=== PATIENT | female | born 1980 | race African-American/Black ===

== ENCOUNTER 2016-09-17 09:47 | Emergency (ER) | payer OTHER ==
[~2016-09-17] VITALS: Ht 157.5 cm; Wt 125.0 kg
[2016-09-17] MEDS ORDERED: PHEN-857 PO (09:56)
[2016-09-17] MEDS ORDERED: NITR100C PO (09:58)
[2016-09-17 10:30] LABS: APPEARANCE,URINE CLOUDY (CLEAR); GLUCOSE, URINE (UA) NEGATIVE (NEGATIVE); KETONES,URINE TRACE mg/dL (NEGATIVE); LEUKOCYTE ESTERASE ,URINE MODERATE (NEGATIVE); OCCULT BLOOD,URINE LARGE (NEGATIVE); PROTEIN,URINE POS 1+ (NEGATIVE)
[2016-09-17 10:38] LABS: EOSINOPHILS % (AUTO) 1.8 % (1.0-6.0); HEMATOCRIT 38.4 % (36-46); HEMOGLOBIN 12.2 g/dL (12.0-16.0); LYMPHOCYTES # (AUTO) 0.9 K/uL (1.0-4.8); LYMPHOCYTES % (AUTO) 9.1 % (22.0-44.0); MEAN CORPUSCULAR HEMOGLOBIN 26.8 pg (26.0-34.0); MEAN CORPUSCULAR HGB CONC 31.9 G/dL (31.0-37.0); MEAN CORPUSCULAR VOLUME 84 fL (80-100); MONOCYTES # (AUTO) 0.8 K/uL (0.1-1.0); NEUTROPHILS # (AUTO) 8.4 K/uL (1.8-7.7); NEUTROPHILS % (AUTO) 81.1 % (40.0-70.0); PLATELET COUNT (AUTO) 319 K/uL (150-450); RED BLOOD CELL COUNT(AUTO) 4.58 MIL/uL (4.00-5.20); RED CELL DISTRIBUTION WIDTH 15.1 % (11.5-14.5); WHITE BLOOD COUNT (AUTO) 10.3 K/uL (4.5-11.0)
[2016-09-17 10:40] LABS: ADD UA MICROSCOPIC YES
[2016-09-17 10:46] LABS: SQUAMOUS EPITHELIAL CELL,UR Many /LPF (None Seen)
[2016-09-17 11:10] LABS: ANION GAP 10 mmol/L (8-16); CALCIUM, TOTAL 8.6 mg/dL (8.8-10.5); CARBON DIOXIDE 27 mmol/L (22-29); CHLORIDE 105 mmol/L (98-107); CREATININE 0.73 mg/dL (0.60-1.30); GLOMERULAR FILTR. RATE CALC > 60 mL/min (>60); POTASSIUM 3.4 mmol/L (3.5-5.1); SODIUM SERUM 142 mmol/L (136-145); UREA NITROGEN, BLOOD 7 mg/dL (7-18)
[2016-09-17 11:14] LABS: ALANINE AMINOTRANSFERASE 24 U/L (12-78); ALBUMIN 3.2 g/dL (3.4-5.0); ASPARTATE AMINOTRANSFERASE 17 U/L (15-37); BILIRUBIN,TOTAL 0.6 mg/dL (0.1-1.0); TOTAL PROTEIN, SERUM 7.3 g/dL (6.4-8.2)
[2016-09-17 11:30] LABS: RBC MORPHOLOGY COMMENT ABNORMAL RBC MORPH
[2016-09-17 11:59] VITALS: BP 127/79
== END 2016-09-17 12:05 | disposition home or self-care (01) ==
LOC: EMS 09:48
DX: N39.0 Urinary tract infection, site not specified (principal)
CPT/HCPCS: 87086; 99284

== ENCOUNTER → 2018-07-31 | Emergency (ER) | payer OTHER ==
[~2018-07-31] VITALS: Ht 157.5 cm; Wt 127.3 kg
[~2018-07-31] MED LIST: FERR-89 PO; NITR100C PO; PHEN-922 PO
[2018-07-31 11:29] VITALS: BP 137/97
[2018-07-31 14:32] LABS: BASOPHILS % (AUTO) 0.3 % (0.0-2.0); EOSINOPHILS % (AUTO) 2.3 % (1.0-6.0); HEMATOCRIT 33.6 % (36-46); HEMOGLOBIN 10.6 g/dL (12.0-16.0); LYMPHOCYTES # (AUTO) 1.2 K/uL (1.0-4.8); LYMPHOCYTES % (AUTO) 17.8 % (22.0-44.0); MEAN CORPUSCULAR HEMOGLOBIN 24.7 pg (26.0-34.0); MEAN CORPUSCULAR HGB CONC 31.4 G/dL (31.0-37.0); MEAN CORPUSCULAR VOLUME 79 fL (80-100); MONOCYTES # (AUTO) 0.7 K/uL (0.1-1.0); MONOCYTES % (AUTO) 9.8 % (2.0-9.0); NEUTROPHILS # (AUTO) 4.8 K/uL (1.8-7.7); NEUTROPHILS % (AUTO) 69.8 % (40.0-70.0); PLATELET COUNT (AUTO) 412 K/uL (150-450); RED BLOOD CELL COUNT(AUTO) 4.28 MIL/uL (4.00-5.20); RED CELL DISTRIBUTION WIDTH 16.1 % (11.5-14.5)
[2018-07-31 14:37] LABS: ANION GAP 9 mmol/L (8-16); CARBON DIOXIDE 28 mmol/L (22-29); CHLORIDE 104 mmol/L (98-107); CREATININE 0.46 mg/dL (0.60-1.30); GLUCOSE,RANDOM 80 mg/dL (70-110); POTASSIUM 3.8 mmol/L (3.5-5.1); SODIUM SERUM 141 mmol/L (136-145); UREA NITROGEN, BLOOD 7 mg/dL (7-18)
[2018-07-31 14:38] LABS: CALCIUM, TOTAL 8.4 mg/dL (8.8-10.5); GLOMERULAR FILTR. RATE CALC > 60 mL/min (>60)
[2018-07-31 14:49] LABS: ALANINE AMINOTRANSFERASE 38 U/L (12-78); ALBUMIN 3.2 g/dL (3.4-5.0); ALKALINE PHOSPHATASE 48 U/L (46-116); ASPARTATE AMINOTRANSFERASE 34 U/L (15-37); BILIRUBIN,TOTAL 0.6 mg/dL (0.1-1.0); HCG,QUANTITATIVE < 1 mIU/mL (0-6); LIPASE 140 U/L (73-393); TOTAL PROTEIN, SERUM 7.6 g/dL (6.4-8.2)
== END | disposition home or self-care (01) ==
LOC: EMS 11:16
DX: R11.2 Nausea with vomiting, unspecified (principal); Z53.21 Procedure and treatment not carried out due to patient leaving prior to being seen by health care provider

== ENCOUNTER 2018-09-18 08:22 | Emergency (ER) | payer OTHER ==
[~2018-09-18] VITALS: Ht 154.9 cm; Wt 127.3 kg
[~2018-09-18 08:22] MED LIST changes: -NITR100C PO; -PHEN-922 PO
[2018-09-18] MEDS ORDERED: VITAD400 PO (08:24)
[2018-09-18 08:53] LABS: GLUCOSE,POINT OF CARE 114 MG/DL (70-110)
[2018-09-18 09:36] VITALS: BP 122/71
== END 2018-09-18 09:38 | disposition home or self-care (01) ==
LOC: EMS 08:23
DX: N61.1 Abscess of the breast and nipple (principal); Z79.899 Other long term (current) drug therapy
CPT/HCPCS: 82948

== ENCOUNTER 2021-07-24 09:42 | Emergency (ER) | payer OTHER ==
[~2021-07-24] VITALS: Ht 165.1 cm; Wt 100.0 kg
[~2021-07-24 09:42] MED LIST changes: +CHOL400T56 PO
[2021-07-24 09:55] VITALS: BP 177/118
== END 2021-07-24 11:23 | disposition left against medical advice (07) ==
LOC: EMS 09:45
DX: I10 Essential (primary) hypertension (principal); R07.89 Other chest pain; Z53.21 Procedure and treatment not carried out due to patient leaving prior to being seen by health care provider

== ENCOUNTER 2021-11-11 09:06 | Emergency (ER) | payer OTHER ==
[~2021-11-11] VITALS: Ht 157.5 cm; Wt 143.0 kg
[~2021-11-11 09:06] MED LIST changes: -FERR-89 PO; +FERR325T27 PO
[2021-11-11 09:23] LABS: APPEARANCE,URINE HAZY (CLEAR); BILIRUBIN,URINE NEGATIVE (NEGATIVE); GLUCOSE, URINE (UA) NEGATIVE (NEGATIVE); KETONES,URINE NEGATIVE (NEGATIVE); LEUKOCYTE ESTERASE ,URINE TRACE (NEGATIVE); NITRATE,URINE NEGATIVE (NEGATIVE); OCCULT BLOOD,URINE NEGATIVE (NEGATIVE); PH,URINE 5.5 (5.0-8.0); PROTEIN,URINE TRACE mg/dL (NEGATIVE); SPECIFIC GRAVITIY, URINE 1.021 (1.003-1.030); UROBILINOGEN,URINE <=1.0 mg/dL (<=1.0)
[2021-11-11 09:43] LABS: BACTERIA,URINE Many /HPF (None Seen); RBC,URINE None Seen /HPF (0-2); SQUAMOUS EPITHELIAL CELL,UR Many /LPF (None Seen); WBC,URINE 0-2 /HPF (0-5)
[2021-11-11] MEDS ORDERED: KETOROLAC TROMETHAMINE 30 MG/ML VIAL IM ONE (10:45)
[2021-11-11] MEDS ORDERED: CEPH-556 PO (13:15)
[2021-11-11 13:22] VITALS: BP 129/68
== END 2021-11-11 13:29 | disposition home or self-care (01) ==
LOC: EMS 09:06
DX: N39.0 Urinary tract infection, site not specified (principal); I10 Essential (primary) hypertension; K76.0 Fatty (change of) liver, not elsewhere classified; N83.201 Unspecified ovarian cyst, right side; Z90.49 Acquired absence of other specified parts of digestive tract; Z98.51 Tubal ligation status
CPT/HCPCS: 74176; 81001; 84703; 96372; 99284; J1885; 87086

== ENCOUNTER 2022-03-04 10:31 | Emergency (ER) | payer OTHER ==
[~2022-03-04] VITALS: Ht 154.9 cm; Wt 141.0 kg
[~2022-03-04 10:31] MED LIST changes: +CEPH-556 PO
[2022-03-04] MEDS ORDERED: KETOROLAC TROMETHAMINE 30 MG/ML VIAL IM ONE (16:15)
[2022-03-04 16:27] LABS: BASOPHILS % (AUTO) 0.3 % (0.0-2.0); HEMOGLOBIN 10.7 g/dL (12.0-16.0); LYMPHOCYTES # (AUTO) 1.2 K/uL (1.0-4.8); MEAN CORPUSCULAR HEMOGLOBIN 24.8 pg (26.0-34.0); MEAN CORPUSCULAR HGB CONC 31.5 G/dL (31.0-37.0); MEAN CORPUSCULAR VOLUME 79 fL (80-100); MONOCYTES # (AUTO) 0.8 K/uL (0.1-1.0); MONOCYTES % (AUTO) 6.1 % (2.0-9.0); NEUTROPHILS # (AUTO) 10.1 K/uL (1.8-7.7); NEUTROPHILS % (AUTO) 81.6 % (40.0-70.0); PLATELET COUNT (AUTO) 435 K/uL (150-450); RED BLOOD CELL COUNT(AUTO) 4.32 MIL/uL (4.00-5.20); RED CELL DISTRIBUTION WIDTH 19.5 % (11.5-14.5)
[2022-03-04 16:44] LABS: ALANINE AMINOTRANSFERASE 33 U/L (12-78); ALBUMIN 3.2 g/dL (3.4-5.0); ALKALINE PHOSPHATASE 65 U/L (46-116); ANION GAP 4 mmol/L (8-16); ASPARTATE AMINOTRANSFERASE 19 U/L (15-37); BILIRUBIN,TOTAL 0.8 mg/dL (0.1-1.0); CALCIUM, TOTAL 9.2 mg/dL (8.8-10.5); CARBON DIOXIDE 32 mmol/L (22-29); CHLORIDE 100 mmol/L (98-107); CREATININE 0.56 mg/dL (0.60-1.30); GLUCOSE,RANDOM 121 mg/dL (70-110); SODIUM SERUM 136 mmol/L (136-145); TOTAL PROTEIN, SERUM 8.2 g/dL (6.4-8.2); UREA NITROGEN, BLOOD 7 mg/dL (7-18)
[2022-03-04 16:47] LABS: GLOMERULAR FILTR. RATE CALC > 60 mL/min (>60); POTASSIUM 2.8 mmol/L (3.5-5.1)
[2022-03-04 16:52] LABS: COVID AG,FIA SOURCE NASAL SWAB
[2022-03-04 17:12] LABS: INFLUENZA TYPE A NEGATIVE FOR TYPE A (NEGATIVE); INFLUENZA TYPE B NEGATIVE FOR TYPE B (NEGATIVE)
[2022-03-04 17:15] VITALS: BP 126/72
[2022-03-04] MEDS ORDERED: LIDOCAINE 1% 10 ML VIAL ID ONE (17:15)
[2022-03-04] MEDS ORDERED: BACTDSB PO (17:26)
[2022-03-04] MEDS ORDERED: POTASSIUM CHLORIDE 20 MEQ ER TABLET PO ONE (18:00)
== END 2022-03-04 18:15 | disposition home or self-care (01) ==
LOC: EMS 10:31
DX: L02.211 Cutaneous abscess of abdominal wall (principal); I10 Essential (primary) hypertension; K76.0 Fatty (change of) liver, not elsewhere classified; Z90.49 Acquired absence of other specified parts of digestive tract; Z98.890 Other specified postprocedural states; Z20.822 Contact with and (suspected) exposure to COVID-19
CPT/HCPCS: 99283; 10060; 87426; 80053; 80176; 85025; 87804; 36415; J1885

== ENCOUNTER 2022-03-08 06:44 | Emergency (ER) | payer OTHER ==
[~2022-03-08] VITALS: Ht 154.9 cm; Wt 141.0 kg
[~2022-03-08 06:44] MED LIST changes: +BACTDSB PO; -CEPH-556 PO
[2022-03-08 06:48] VITALS: BP 122/78
[2022-03-08] MEDS ORDERED: CLIN300C58 PO (07:31)
== END 2022-03-08 07:44 | disposition home or self-care (01) ==
LOC: EMS 06:45
DX: L98.499 Non-pressure chronic ulcer of skin of other sites with unspecified severity (principal); L03.311 Cellulitis of abdominal wall; I10 Essential (primary) hypertension; K76.0 Fatty (change of) liver, not elsewhere classified; Z90.49 Acquired absence of other specified parts of digestive tract; Z98.890 Other specified postprocedural states
CPT/HCPCS: 87070; 87186; 87205; 99283

== ENCOUNTER 2022-05-22 09:01 | Emergency (ER) | payer OTHER ==
[~2022-05-22] VITALS: Ht 157.5 cm; Wt 140.9 kg
[~2022-05-22 09:01] MED LIST changes: -BACTDSB PO; +CLIN300C58 PO
[2022-05-22 09:23] VITALS: BP 149/63
[2022-05-22 09:30] LABS: COVID AG,FIA SOURCE NASAL SWAB
[2022-05-22 10:27] LABS: INFLUENZA TYPE A NEGATIVE FOR TYPE A (NEGATIVE); INFLUENZA TYPE B NEGATIVE FOR TYPE B (NEGATIVE)
[2022-05-22] MEDS ORDERED: BENZ-70 PO (12:27)
[2022-05-22] MEDS ORDERED: BENZ1LOZ77 PO (12:27)
[2022-05-22] MEDS ORDERED: IBUP-2070 PO (12:27)
== END 2022-05-22 12:57 | disposition home or self-care (01) ==
LOC: EMS 09:05
DX: J06.9 Acute upper respiratory infection, unspecified (principal); I10 Essential (primary) hypertension; K76.0 Fatty (change of) liver, not elsewhere classified; Z90.49 Acquired absence of other specified parts of digestive tract; Z20.822 Contact with and (suspected) exposure to COVID-19
CPT/HCPCS: 87804; 99283

== ENCOUNTER 2022-06-09 13:50 | Emergency (ER) | payer OTHER ==
[~2022-06-09] VITALS: Ht 157.5 cm; Wt 136.4 kg
[~2022-06-09 13:50] MED LIST changes: +BENZ-70 PO; +BENZ1LOZ77 PO; -CHOL400T56 PO; -CLIN300C58 PO; -FERR325T27 PO; +IBUP-2070 PO
[2022-06-09] MEDS ORDERED: SODIUM CHLORIDE 0.9% 1,000 ML IV ONE (14:15)
[2022-06-09] MEDS ORDERED: KETOROLAC TROMETHAMINE 30 MG/ML VIAL IVP ONE (14:15)
[2022-06-09 14:36] LABS: BASOPHILS % (AUTO) 0.4 % (0.0-2.0); EOSINOPHILS % (AUTO) 3.5 % (1.0-6.0); HEMATOCRIT 33.6 % (36-46); HEMOGLOBIN 10.4 g/dL (12.0-16.0); LYMPHOCYTES # (AUTO) 1.9 K/uL (1.0-4.8); LYMPHOCYTES % (AUTO) 17.1 % (22.0-44.0); MEAN CORPUSCULAR HEMOGLOBIN 23.8 pg (26.0-34.0); MEAN CORPUSCULAR HGB CONC 30.8 G/dL (31.0-37.0); MEAN CORPUSCULAR VOLUME 77 fL (80-100); MONOCYTES # (AUTO) 0.8 K/uL (0.1-1.0); MONOCYTES % (AUTO) 7.2 % (2.0-9.0); NEUTROPHILS # (AUTO) 7.9 K/uL (1.8-7.7); NEUTROPHILS % (AUTO) 71.8 % (40.0-70.0); PLATELET COUNT (AUTO) 499 K/uL (150-450); RED BLOOD CELL COUNT(AUTO) 4.37 MIL/uL (4.00-5.20); RED CELL DISTRIBUTION WIDTH 18.3 % (11.5-14.5)
[2022-06-09 15:01] LABS: ANION GAP 8 mmol/L (8-16); CALCIUM, TOTAL 9.3 mg/dL (8.8-10.5); CARBON DIOXIDE 30 mmol/L (22-29); CHLORIDE 102 mmol/L (98-107); CREATININE 0.59 mg/dL (0.60-1.30); GLUCOSE,RANDOM 100 mg/dL (70-110); SODIUM SERUM 140 mmol/L (136-145); UREA NITROGEN, BLOOD 10 mg/dL (7-18)
[2022-06-09 15:02] LABS: GLOMERULAR FILTR. RATE CALC > 60 mL/min (>60)
[2022-06-09 15:06] LABS: APPEARANCE,URINE CLEAR (CLEAR); BILIRUBIN,URINE NEGATIVE (NEGATIVE); GLUCOSE, URINE (UA) NEGATIVE (NEGATIVE); KETONES,URINE NEGATIVE (NEGATIVE); LEUKOCYTE ESTERASE ,URINE TRACE (NEGATIVE); NITRATE,URINE NEGATIVE (NEGATIVE); OCCULT BLOOD,URINE NEGATIVE (NEGATIVE); PH,URINE 5.5 (5.0-8.0); PROTEIN,URINE TRACE mg/dL (NEGATIVE); SPECIFIC GRAVITIY, URINE 1.028 (1.003-1.030); UROBILINOGEN,URINE <=1.0 mg/dL (<=1.0)
[2022-06-09 15:06] LABS: ALANINE AMINOTRANSFERASE 19 U/L (12-78); ALBUMIN 3.5 g/dL (3.4-5.0); ALKALINE PHOSPHATASE 59 U/L (46-116); ASPARTATE AMINOTRANSFERASE 18 U/L (15-37); BILIRUBIN,TOTAL 0.6 mg/dL (0.1-1.0); LIPASE 118 U/L (73-393); TOTAL PROTEIN, SERUM 8.3 g/dL (6.4-8.2)
[2022-06-09 15:09] LABS: BACTERIA,URINE None Seen /HPF (None Seen); RBC,URINE None Seen /HPF (0-2); WBC,URINE 0-2 /HPF (0-5)
[2022-06-09 15:10] LABS: SQUAMOUS EPITHELIAL CELL,UR Many /LPF (None Seen)
[2022-06-09 16:20] VITALS: BP 162/108
[2022-06-09] MEDS ORDERED: ACET-3385 PO (16:26)
[2022-06-09] MEDS ORDERED: FAMO20 PO (16:26)
== END 2022-06-09 16:36 | disposition home or self-care (01) ==
LOC: EMS 13:55
DX: R10.33 Periumbilical pain (principal); I10 Essential (primary) hypertension; K76.0 Fatty (change of) liver, not elsewhere classified; Z98.51 Tubal ligation status; Z90.49 Acquired absence of other specified parts of digestive tract
CPT/HCPCS: 99284; 74176; 96374; 96361; 80053; 81001; 83690; 85025; 36415; J1885; J7030

== ENCOUNTER 2022-08-23 08:10 | Emergency (ER) | payer OTHER ==
[~2022-08-23] VITALS: Ht 165.1 cm; Wt 138.6 kg
[~2022-08-23 08:10] MED LIST changes: +ACET-3385 PO; -BENZ-70 PO; -BENZ1LOZ77 PO; +FAMO20 PO; -IBUP-2070 PO
[2022-08-23 08:39] LABS: COVID AG,FIA SOURCE NASAL SWAB
[2022-08-23] MEDS ORDERED: SODIUM CHLORIDE 0.9% IV ONE (08:45)
[2022-08-23] MEDS ORDERED: 0.9% SODIUM CHLORIDE 10 ML SYRINGE IVP PRN (08:45)
[2022-08-23] MEDS ORDERED: CefTRIAXone 1 GM/DEXTROSE 50 ML IV ONE (08:45)
[2022-08-23] MEDS ORDERED: ACETAMINOPHEN 500 MG TABLET PO ONE (08:45)
[2022-08-23 09:09] LABS: INFLUENZA TYPE A NEGATIVE FOR TYPE A (NEGATIVE); INFLUENZA TYPE B NEGATIVE FOR TYPE B (NEGATIVE)
[2022-08-23 09:13] LABS: BASOPHILS % (AUTO) 0.6 % (0.0-2.0); EOSINOPHILS % (AUTO) 1.6 % (1.0-6.0); HEMATOCRIT 29.3 % (36-46); LYMPHOCYTES # (AUTO) 0.9 K/uL (1.0-4.8); LYMPHOCYTES % (AUTO) 10.4 % (22.0-44.0); MEAN CORPUSCULAR HEMOGLOBIN 21.2 pg (26.0-34.0); MEAN CORPUSCULAR HGB CONC 30.7 G/dL (31.0-37.0); MEAN CORPUSCULAR VOLUME 69 fL (80-100); MONOCYTES # (AUTO) 1.2 K/uL (0.1-1.0); MONOCYTES % (AUTO) 14.1 % (2.0-9.0); NEUTROPHILS # (AUTO) 6.1 K/uL (1.8-7.7); NEUTROPHILS % (AUTO) 73.3 % (40.0-70.0); PLATELET COUNT (AUTO) 452 K/uL (150-450); RED BLOOD CELL COUNT(AUTO) 4.24 MIL/uL (4.00-5.20); RED CELL DISTRIBUTION WIDTH 18.5 % (11.5-14.5)
[2022-08-23 09:24] LABS: PROTHROMBIN TIME 10.8 SEC (9.4-11.6)
[2022-08-23 09:25] LABS: ANION GAP 9 mmol/L (8-16); CALCIUM, TOTAL 8.6 mg/dL (8.8-10.5); CARBON DIOXIDE 25 mmol/L (22-29); CHLORIDE 102 mmol/L (98-107); CREATININE 0.84 mg/dL (0.60-1.30); GLOMERULAR FILTR. RATE CALC > 60 mL/min (>60); GLUCOSE,RANDOM 96 mg/dL (70-110); POTASSIUM 3.8 mmol/L (3.5-5.1); SODIUM SERUM 136 mmol/L (136-145); UREA NITROGEN, BLOOD 5 mg/dL (7-18)
[2022-08-23 09:31] LABS: ALANINE AMINOTRANSFERASE 24 U/L (12-78); ALBUMIN 3.2 g/dL (3.4-5.0); ALKALINE PHOSPHATASE 69 U/L (46-116); ASPARTATE AMINOTRANSFERASE 26 U/L (15-37); BILIRUBIN,TOTAL 0.5 mg/dL (0.1-1.0); TOTAL PROTEIN, SERUM 8.1 g/dL (6.4-8.2)
[2022-08-23 09:34] LABS: LACTIC ACID 0.7 mmol/L (0.4-2.0)
[2022-08-23] MEDS ORDERED: AZITHROMYCIN 500 MG/NS 250 ML IV ONE (11:00)
[2022-08-23 11:12] LABS: APPEARANCE,URINE CLEAR (CLEAR); BILIRUBIN,URINE NEGATIVE (NEGATIVE); GLUCOSE, URINE (UA) NEGATIVE (NEGATIVE); KETONES,URINE NEGATIVE (NEGATIVE); LEUKOCYTE ESTERASE ,URINE NEGATIVE (NEGATIVE); NITRATE,URINE NEGATIVE (NEGATIVE); OCCULT BLOOD,URINE NEGATIVE (NEGATIVE); PROTEIN,URINE NEGATIVE (NEGATIVE); SPECIFIC GRAVITIY, URINE 1.004 (1.003-1.030); UROBILINOGEN,URINE <=1.0 mg/dL (<=1.0)
[2022-08-23] MEDS ORDERED: AZIT250T9 PO (12:27)
[2022-08-23] MEDS ORDERED: AMOX1TAB16 PO (12:27)
[2022-08-23 12:49] VITALS: BP 149/87
== END 2022-08-23 12:59 | disposition home or self-care (01) ==
LOC: EMS 08:14
DX: J18.9 Pneumonia, unspecified organism (principal); I10 Essential (primary) hypertension; K76.0 Fatty (change of) liver, not elsewhere classified; Z98.51 Tubal ligation status; Z90.49 Acquired absence of other specified parts of digestive tract; Z98.890 Other specified postprocedural states; Z20.822 Contact with and (suspected) exposure to COVID-19
CPT/HCPCS: 99285; 96365; 71045; 87426; 80053; 81003; 83605; 85025; 85610; 87040; 87804; 36415; 93005; 96368; J0456; J0696

== ENCOUNTER 2022-09-08 13:03 | Emergency (ER) | payer OTHER ==
[~2022-09-08] VITALS: Ht 157.5 cm; Wt 136.4 kg
[~2022-09-08 13:03] MED LIST changes: -ACET-3385 PO; +AMOX1TAB16 PO; -FAMO20 PO
[2022-09-08 13:15] VITALS: BP 150/83
[2022-09-08 14:01] LABS: BASOPHILS % (AUTO) 0.4 % (0.0-2.0); EOSINOPHILS % (AUTO) 3.3 % (1.0-6.0); HEMATOCRIT 29.7 % (36-46); LYMPHOCYTES # (AUTO) 1.6 K/uL (1.0-4.8); MEAN CORPUSCULAR HEMOGLOBIN 20.6 pg (26.0-34.0); MEAN CORPUSCULAR HGB CONC 30.1 G/dL (31.0-37.0); MEAN CORPUSCULAR VOLUME 68 fL (80-100); MONOCYTES # (AUTO) 0.9 K/uL (0.1-1.0); MONOCYTES % (AUTO) 7.2 % (2.0-9.0); NEUTROPHILS # (AUTO) 9.2 K/uL (1.8-7.7); NEUTROPHILS % (AUTO) 76.1 % (40.0-70.0); PLATELET COUNT (AUTO) 666 K/uL (150-450); RED BLOOD CELL COUNT(AUTO) 4.35 MIL/uL (4.00-5.20); RED CELL DISTRIBUTION WIDTH 18.7 % (11.5-14.5)
[2022-09-08 14:14] LABS: ANION GAP 11 mmol/L (8-16); CALCIUM, TOTAL 9.4 mg/dL (8.8-10.5); CARBON DIOXIDE 29 mmol/L (22-29); CHLORIDE 101 mmol/L (98-107); CREATININE 0.58 mg/dL (0.60-1.30); GLOMERULAR FILTR. RATE CALC > 60 mL/min (>60); GLUCOSE,RANDOM 87 mg/dL (70-110); POTASSIUM 3.3 mmol/L (3.5-5.1); SODIUM SERUM 141 mmol/L (136-145); UREA NITROGEN, BLOOD 8 mg/dL (7-18)
[2022-09-08 14:14] LABS: APPEARANCE,URINE HAZY (CLEAR); BILIRUBIN,URINE NEGATIVE (NEGATIVE); GLUCOSE, URINE (UA) NEGATIVE (NEGATIVE); KETONES,URINE NEGATIVE (NEGATIVE); LEUKOCYTE ESTERASE ,URINE NEGATIVE (NEGATIVE); NITRATE,URINE NEGATIVE (NEGATIVE); OCCULT BLOOD,URINE NEGATIVE (NEGATIVE); PH,URINE 5.5 (5.0-8.0); PROTEIN,URINE 30-70 mg/dL (NEGATIVE); SPECIFIC GRAVITIY, URINE 1.022 (1.003-1.030); UROBILINOGEN,URINE <=1.0 mg/dL (<=1.0)
[2022-09-08 14:26] LABS: ALANINE AMINOTRANSFERASE 15 U/L (12-78); ALBUMIN 3.4 g/dL (3.4-5.0); ALKALINE PHOSPHATASE 69 U/L (46-116); ASPARTATE AMINOTRANSFERASE 18 U/L (15-37); BILIRUBIN,TOTAL 0.6 mg/dL (0.1-1.0); HCG,QUANTITATIVE < 1 mIU/mL (0-6)
[2022-09-08] MEDS ORDERED: HYDROCODONE/ACETAMINOPHEN 5-325 MG TABLET PO ONE (15:15)
[2022-09-08] MEDS ORDERED: POTASSIUM CHLORIDE 20 MEQ ER TABLET PO ONE (15:15)
[2022-09-08 15:26] LABS: % IRON SATURATION 11.2 % (22-44)
[2022-09-08] MEDS ORDERED: POLY238P PO (18:49)
[2022-09-08] MEDS ORDERED: ACET-2080 PO (18:49)
[2022-09-08] MEDS ORDERED: IBUP-1554 PO (18:49)
== END 2022-09-08 19:28 | disposition home or self-care (01) ==
LOC: EMS 13:09
DX: R10.84 Generalized abdominal pain (principal); D25.9 Leiomyoma of uterus, unspecified; K59.00 Constipation, unspecified; K57.90 Diverticulosis of intestine, part unspecified, without perforation or abscess without bleeding; E87.6 Hypokalemia; D50.9 Iron deficiency anemia, unspecified; E66.01 Morbid (severe) obesity due to excess calories; I10 Essential (primary) hypertension; K76.0 Fatty (change of) liver, not elsewhere classified; Z68.43 Body mass index [BMI] 50.0-59.9, adult; Z90.49 Acquired absence of other specified parts of digestive tract; Z98.51 Tubal ligation status; Z98.890 Other specified postprocedural states
CPT/HCPCS: 73700; 74176; 80053; 81003; 83540; 83550; 84702; 85025; 99284

== ENCOUNTER 2022-09-26 05:12 | Emergency (ER) | payer OTHER ==
[~2022-09-26] VITALS: Ht 157.5 cm; Wt 122.7 kg
[~2022-09-26 05:12] MED LIST changes: +ACET-2080 PO; +IBUP-1554 PO; +POLY238P PO
[2022-09-26 05:58] VITALS: BP 122/76
[2022-09-26] MEDS ORDERED: BACLOFEN 10 MG TABLET PO ONE (07:00)
[2022-09-26] MEDS ORDERED: KETOROLAC TROMETHAMINE 60 MG/2 ML VIAL IM ONE (07:00)
[2022-09-26 07:05] LABS: BASOPHILS % (AUTO) 0.3 % (0.0-2.0); EOSINOPHILS % (AUTO) 1.9 % (1.0-6.0); HEMATOCRIT 29.2 % (36-46); HEMOGLOBIN 8.6 g/dL (12.0-16.0); LYMPHOCYTES # (AUTO) 1.2 K/uL (1.0-4.8); LYMPHOCYTES % (AUTO) 9.8 % (22.0-44.0); MEAN CORPUSCULAR HEMOGLOBIN 20.1 pg (26.0-34.0); MEAN CORPUSCULAR HGB CONC 29.5 G/dL (31.0-37.0); MEAN CORPUSCULAR VOLUME 68 fL (80-100); MONOCYTES % (AUTO) 8.7 % (2.0-9.0); NEUTROPHILS # (AUTO) 9.5 K/uL (1.8-7.7); NEUTROPHILS % (AUTO) 79.3 % (40.0-70.0); PLATELET COUNT (AUTO) 714 K/uL (150-450); RED BLOOD CELL COUNT(AUTO) 4.28 MIL/uL (4.00-5.20); RED CELL DISTRIBUTION WIDTH 19.9 % (11.5-14.5)
[2022-09-26 07:18] LABS: ANION GAP 5 mmol/L (8-16); CARBON DIOXIDE 29 mmol/L (22-29); CHLORIDE 104 mmol/L (98-107); CREATININE 0.63 mg/dL (0.60-1.30); GLOMERULAR FILTR. RATE CALC > 60 mL/min (>60); GLUCOSE,RANDOM 112 mg/dL (70-110); POTASSIUM 3.6 mmol/L (3.5-5.1); SODIUM SERUM 138 mmol/L (136-145); UREA NITROGEN, BLOOD 9 mg/dL (7-18)
[2022-09-26 07:24] LABS: ALANINE AMINOTRANSFERASE 17 U/L (12-78); ALBUMIN 3.1 g/dL (3.4-5.0); ALKALINE PHOSPHATASE 68 U/L (46-116); ASPARTATE AMINOTRANSFERASE 16 U/L (15-37); BILIRUBIN,TOTAL 0.7 mg/dL (0.1-1.0); LIPASE 124 U/L (73-393); TOTAL PROTEIN, SERUM 8.3 g/dL (6.4-8.2)
[2022-09-26] MEDS ORDERED: HYDR-4723 PO (08:47)
[2022-09-26] MEDS ORDERED: METR500 PO (08:47)
[2022-09-26] MEDS ORDERED: POLY238P PO (08:47)
[2022-09-26] MEDS ORDERED: MICO45CR76 VG (08:47)
[2022-09-26] MEDS ORDERED: CEPH-558 PO (08:47)
== END 2022-09-26 09:01 | disposition home or self-care (01) ==
LOC: EMS 05:13
DX: K57.32 Diverticulitis of large intestine without perforation or abscess without bleeding (principal); I10 Essential (primary) hypertension; K76.0 Fatty (change of) liver, not elsewhere classified; Z90.49 Acquired absence of other specified parts of digestive tract; Z98.51 Tubal ligation status; Z98.890 Other specified postprocedural states
CPT/HCPCS: 99285; 74176; 80053; 83690; 84703; 85025; 36415; 96372; J1885

== ENCOUNTER 2023-04-14 07:39 | Emergency (ER) | payer OTHER ==
[~2023-04-14] VITALS: Ht 167.6 cm; Wt 113.6 kg
[~2023-04-14 07:39] MED LIST changes: -ACET-2080 PO; -AMOX1TAB16 PO; +CEPH-558 PO; +HYDR-4723 PO; -IBUP-1554 PO; +METR500 PO; +MICO45CR76 VG
[2023-04-14 07:47] VITALS: TEMP 99
[2023-04-14] MEDS ORDERED: LOSA100T59 PO (07:51)
[2023-04-14] MEDS ORDERED: MEDR10TA11 PO (07:51)
[2023-04-14 07:55] LABS: COVID AG,FIA SOURCE NASAL SWAB
[2023-04-14 08:24] LABS: SARS-COV2 (COVID) ANTIGEN,FIA Negative (Negative)
[2023-04-14 08:25] LABS: INFLUENZA TYPE A NEGATIVE FOR TYPE A (NEGATIVE); INFLUENZA TYPE B NEGATIVE FOR TYPE B (NEGATIVE)
[2023-04-14 08:42] VITALS: BP 143/70; PULSE 67; RESP 16
[2023-04-14] MEDS ORDERED: AMOX500C2 PO (09:03)
== END 2023-04-14 09:25 | disposition home or self-care (01) ==
LOC: EMS 07:42
DX: J32.9 Chronic sinusitis, unspecified (principal); I10 Essential (primary) hypertension; D64.9 Anemia, unspecified; Z90.49 Acquired absence of other specified parts of digestive tract; Z98.51 Tubal ligation status; Z20.822 Contact with and (suspected) exposure to COVID-19
CPT/HCPCS: 71045; 87804; 99284

== ENCOUNTER 2023-07-31 07:00 | Emergency (ER) | payer OTHER ==
[~2023-07-31] VITALS: Ht 154.9 cm; Wt 133.2 kg
[~2023-07-31 07:00] MED LIST changes: +AMOX500C2 PO; -CEPH-558 PO; -HYDR-4723 PO; +LOSA100T59 PO; +MEDR10TA11 PO; -METR500 PO; -MICO45CR76 VG; -POLY238P PO
[2023-07-31 07:05] VITALS: BP 133/96; PULSE 70; RESP 18; TEMP 98.4
[2023-07-31 07:24] LABS: COVID AG,FIA SOURCE NASAL SWAB
[2023-07-31 08:09] LABS: SARS-COV2 (COVID) ANTIGEN,FIA Positive (Negative)
[2023-07-31] MEDS ORDERED: GUAIFDM PO (08:15)
[2023-07-31] MEDS ORDERED: IBUP-1554 PO (08:15)
[2023-07-31] MEDS ORDERED: ACET-2080 PO (08:15)
== END 2023-07-31 08:26 | disposition home or self-care (01) ==
LOC: EMS 07:01
DX: U07.1 COVID-19 (principal); J06.9 Acute upper respiratory infection, unspecified; I10 Essential (primary) hypertension; Z90.49 Acquired absence of other specified parts of digestive tract; Z98.51 Tubal ligation status; Z98.890 Other specified postprocedural states
CPT/HCPCS: 99283

== ENCOUNTER 2023-08-03 08:45 | Emergency (ER) | payer OTHER ==
[~2023-08-03] VITALS: Ht 154.9 cm; Wt 98.0 kg
[~2023-08-03 08:45] MED LIST changes: +ACET-2080 PO; -AMOX500C2 PO; +GUAIFDM PO; +IBUP-1554 PO
[2023-08-03] MEDS ORDERED: ORAL CONTRACEPTIVE PO (08:54)
[2023-08-03 09:24] LABS: COVID AG,FIA SOURCE NASAL SWAB
[2023-08-03 09:42] VITALS: BP 154/66; PULSE 82; RESP 16; TEMP 98.2
[2023-08-03 09:47] LABS: SARS-COV2 (COVID) ANTIGEN,FIA Negative (Negative)
[2023-08-03 09:56] LABS: INFLUENZA TYPE A NEGATIVE FOR TYPE A (NEGATIVE); INFLUENZA TYPE B POSITIVE FOR TYPE B (NEGATIVE)
== END 2023-08-03 11:01 | disposition home or self-care (01) ==
LOC: EMS 08:51
DX: J10.1 Influenza due to other identified influenza virus with other respiratory manifestations (principal); I10 Essential (primary) hypertension; Z90.49 Acquired absence of other specified parts of digestive tract; Z98.51 Tubal ligation status; Z98.890 Other specified postprocedural states; Z20.822 Contact with and (suspected) exposure to COVID-19
CPT/HCPCS: 87804; 99283

== ENCOUNTER 2023-08-23 10:39 | Emergency (ER) | payer OTHER ==
[~2023-08-23] VITALS: Ht 154.9 cm; Wt 131.8 kg
[~2023-08-23 10:39] MED LIST changes: -ACET-2080 PO; -GUAIFDM PO; -IBUP-1554 PO; -MEDR10TA11 PO; +ORAL CONTRACEPTIVE PO
[2023-08-23 10:47] VITALS: TEMP 97.8
[2023-08-23 11:13] LABS: COVID AG,FIA SOURCE NASAL SWAB
[2023-08-23 11:36] LABS: INFLUENZA TYPE A NEGATIVE FOR TYPE A (NEGATIVE); INFLUENZA TYPE B NEGATIVE FOR TYPE B (NEGATIVE); SARS-COV2 (COVID) ANTIGEN,FIA Negative (Negative)
[2023-08-23 13:17] VITALS: BP 122/79; PULSE 84; RESP 16
[2023-08-23] MEDS ORDERED: IBUP-1492 PO (13:29)
[2023-08-23] MEDS ORDERED: AMOX500C2 PO (13:30)
== END 2023-08-23 13:18 | disposition home or self-care (01) ==
LOC: EMS 10:46
DX: J01.90 Acute sinusitis, unspecified (principal); D64.9 Anemia, unspecified; I10 Essential (primary) hypertension; Z90.49 Acquired absence of other specified parts of digestive tract; Z98.51 Tubal ligation status; Z20.822 Contact with and (suspected) exposure to COVID-19
CPT/HCPCS: 87430; 87804; 99283

== ENCOUNTER 2024-03-02 07:41 | Emergency (ER) | payer OTHER ==
[~2024-03-02] VITALS: Ht 154.9 cm; Wt 135.4 kg
[~2024-03-02 07:41] MED LIST changes: +AMOX500C2 PO; +IBUP-1492 PO
[2024-03-02 07:47] VITALS: TEMP 97.9
[2024-03-02 08:54] LABS: BASOPHILS % (AUTO) 0.5 % (0.0-2.0); EOSINOPHILS % (AUTO) 3.5 % (1.0-6.0); HEMATOCRIT 40.6 % (36-46); HEMOGLOBIN 12.8 g/dL (12.0-16.0); LYMPHOCYTES # (AUTO) 1.4 K/uL (1.0-4.8); LYMPHOCYTES % (AUTO) 18.6 % (22.0-44.0); MEAN CORPUSCULAR HEMOGLOBIN 25.8 pg (26.0-34.0); MEAN CORPUSCULAR HGB CONC 31.5 G/dL (31.0-37.0); MEAN CORPUSCULAR VOLUME 82 fL (80-100); MONOCYTES # (AUTO) 0.6 K/uL (0.1-1.0); MONOCYTES % (AUTO) 8.4 % (2.0-9.0); NEUTROPHILS # (AUTO) 5.1 K/uL (1.8-7.7); PLATELET COUNT (AUTO) 374 K/uL (150-450); RED BLOOD CELL COUNT(AUTO) 4.95 MIL/uL (4.00-5.20); RED CELL DISTRIBUTION WIDTH 15.5 % (11.5-14.5); WHITE BLOOD COUNT (AUTO) 7.4 K/uL (4.5-11.0)
[2024-03-02] MEDS: KETOROLAC TROMETHAMINE 60 MG/2 ML VIAL IM ONE (09:02)
[2024-03-02 09:05] LABS: ANION GAP 6 mmol/L (8-16); CALCIUM, TOTAL 8.6 mg/dL (8.8-10.5); CARBON DIOXIDE 26 mmol/L (22-29); CHLORIDE 105 mmol/L (98-107); GLOMERULAR FILTR. RATE CALC > 60 mL/min (>60); GLUCOSE,RANDOM 91 mg/dL (70-110); POTASSIUM 3.8 mmol/L (3.5-5.1); SODIUM SERUM 137 mmol/L (136-145); UREA NITROGEN, BLOOD 8 mg/dL (7-18)
[2024-03-02] MEDS: METHOCARBAMOL 500 MG TABLET PO ONE (09:19)
[2024-03-02 09:45] LABS: APPEARANCE,URINE HAZY (CLEAR); BILIRUBIN,URINE NEGATIVE (NEGATIVE); COLOR,URINE YELLOW (YELLOW); GLUCOSE, URINE (UA) NEGATIVE (NEGATIVE); KETONES,URINE NEGATIVE (NEGATIVE); LEUKOCYTE ESTERASE ,URINE NEGATIVE (NEGATIVE); NITRATE,URINE NEGATIVE (NEGATIVE); OCCULT BLOOD,URINE MODERATE (NEGATIVE); PH,URINE 5.5 (5.0-8.0); PROTEIN,URINE 30-70 mg/dL (NEGATIVE); SPECIFIC GRAVITIY, URINE 1.026 (1.003-1.030); UROBILINOGEN,URINE <=1.0 mg/dL (<=1.0)
[2024-03-02 09:55] LABS: WBC,URINE 0-2 /HPF (0-5)
[2024-03-02 09:56] LABS: BACTERIA,URINE Many /HPF (None Seen); SQUAMOUS EPITHELIAL CELL,UR Many /LPF (None Seen)
[2024-03-02 10:50] VITALS: BP 138/76; PULSE 72; RESP 18; O2SAT 97
[2024-03-02] MEDS ORDERED: CEPH-558 PO (10:53)
== END 2024-03-02 11:01 | disposition home or self-care (01) ==
LOC: EMS 07:41
DX: N39.0 Urinary tract infection, site not specified (principal); R10.9 Unspecified abdominal pain; I10 Essential (primary) hypertension; D64.9 Anemia, unspecified; Z90.49 Acquired absence of other specified parts of digestive tract; Z98.51 Tubal ligation status
CPT/HCPCS: 99283; 80048; 81001; 85025; 36415; 87086; 87186; 96372; J1885

== ENCOUNTER → 2024-03-23 | Emergency (ER) | payer OTHER ==
[~2024-03-23] VITALS: Ht 154.9 cm; Wt 136.4 kg
[~2024-03-23] MED LIST changes: +ACET-66 PO; -AMOX500C2 PO; +BENZ-227 PO; +CEPH-558 PO; +GUAIFDM PO; +IBUP-1554 PO
[2024-03-23 07:42] VITALS: BP 153/89; PULSE 74; RESP 18; O2SAT 100
[2024-03-23 07:55] LABS: COVID AG,FIA SOURCE NASAL SWAB
[2024-03-23 08:17] LABS: SARS-COV2 (COVID) ANTIGEN,FIA Negative (Negative)
[2024-03-23 08:19] LABS: INFLUENZA TYPE A NEGATIVE FOR TYPE A (NEGATIVE); INFLUENZA TYPE B POSITIVE FOR TYPE B (NEGATIVE)
== END | disposition home or self-care (01) ==
LOC: EMS 07:35
DX: J10.1 Influenza due to other identified influenza virus with other respiratory manifestations (principal); I10 Essential (primary) hypertension; R05.9 Cough, unspecified; R51.9 Headache, unspecified; Z20.822 Contact with and (suspected) exposure to COVID-19
CPT/HCPCS: 87804; 99283

== ENCOUNTER 2024-08-20 09:06 | Emergency (ER) | payer OTHER ==
[~2024-08-20] VITALS: Ht 154.9 cm; Wt 136.4 kg
[2024-08-20 09:26] VITALS: TEMP 98
[2024-08-20 09:56] LABS: APPEARANCE,URINE HAZY (CLEAR); BILIRUBIN,URINE NEGATIVE (NEGATIVE); COLOR,URINE YELLOW (YELLOW); GLUCOSE, URINE (UA) NEGATIVE (NEGATIVE); KETONES,URINE NEGATIVE (NEGATIVE); LEUKOCYTE ESTERASE ,URINE NEGATIVE (NEGATIVE); NITRATE,URINE NEGATIVE (NEGATIVE); OCCULT BLOOD,URINE NEGATIVE (NEGATIVE); PH,URINE 5.5 (5.0-8.0); PROTEIN,URINE TRACE mg/dL (NEGATIVE); SPECIFIC GRAVITIY, URINE 1.028 (1.003-1.030)
[2024-08-20 10:43] LABS: BASOPHILS % (AUTO) 0.7 % (0.0-2.0); EOSINOPHILS % (AUTO) 3.8 % (1.0-6.0); HEMATOCRIT 37.5 % (36-46); HEMOGLOBIN 11.9 g/dL (12.0-16.0); LYMPHOCYTES # (AUTO) 1.4 K/uL (1.0-4.8); LYMPHOCYTES % (AUTO) 17.8 % (22.0-44.0); MEAN CORPUSCULAR HEMOGLOBIN 26.3 pg (26.0-34.0); MEAN CORPUSCULAR HGB CONC 31.8 G/dL (31.0-37.0); MEAN CORPUSCULAR VOLUME 83 fL (80-100); MONOCYTES # (AUTO) 0.6 K/uL (0.1-1.0); NEUTROPHILS # (AUTO) 5.5 K/uL (1.8-7.7); NEUTROPHILS % (AUTO) 69.7 % (40.0-70.0); PLATELET COUNT (AUTO) 455 K/uL (150-450); RED BLOOD CELL COUNT(AUTO) 4.54 MIL/uL (4.00-5.20); RED CELL DISTRIBUTION WIDTH 18.2 % (11.5-14.5); WHITE BLOOD COUNT (AUTO) 7.9 K/uL (4.5-11.0)
[2024-08-20 10:52] LABS: ANION GAP 8 mmol/L (8-16); CALCIUM, TOTAL 8.8 mg/dL (8.8-10.5); CARBON DIOXIDE 29 mmol/L (22-29); CHLORIDE 102 mmol/L (98-107); CREATININE 0.57 mg/dL (0.60-1.30); GLOMERULAR FILTR. RATE CALC > 60 mL/min (>60); GLUCOSE,RANDOM 87 mg/dL (70-110); LIPASE 41 U/L (16-77); SODIUM SERUM 139 mmol/L (136-145); UREA NITROGEN, BLOOD 9 mg/dL (7-18)
[2024-08-20] MEDS: METHOCARBAMOL 500 MG TABLET PO ONE (11:47)
[2024-08-20] MEDS: KETOROLAC TROMETHAMINE 30 MG/ML VIAL IVP ONE (11:47)
[2024-08-20 12:43] VITALS: BP 157/89; PULSE 70; RESP 16; O2SAT 99
== END 2024-08-20 13:34 | disposition home or self-care (01) ==
LOC: EMS 09:06
DX: R10.31 Right lower quadrant pain (principal); I10 Essential (primary) hypertension; K76.0 Fatty (change of) liver, not elsewhere classified; Z79.1 Long term (current) use of non-steroidal anti-inflammatories (NSAID); Z79.899 Other long term (current) drug therapy; Z90.49 Acquired absence of other specified parts of digestive tract; Z98.51 Tubal ligation status
CPT/HCPCS: 99283; 96374; 80048; 81003; 83690; 85025; 36415; J1885

== ENCOUNTER 2024-09-25 11:06 | Emergency (ER) | payer OTHER ==
[~2024-09-25] VITALS: Ht 154.9 cm; Wt 135.1 kg
[2024-09-25 11:10] VITALS: TEMP 98.5
[2024-09-25] MEDS ORDERED: MEDR10TA11 PO (11:12)
[2024-09-25] MEDS ORDERED: CHOL200059 PO (11:12)
[2024-09-25 11:22] LABS: COVID AG,FIA SOURCE NASAL SWAB
[2024-09-25 11:54] LABS: SARS-COV2 (COVID) ANTIGEN,FIA Negative (Negative)
[2024-09-25 11:55] LABS: INFLUENZA TYPE A NEGATIVE FOR TYPE A (NEGATIVE); INFLUENZA TYPE B POSITIVE FOR TYPE B (NEGATIVE)
[2024-09-25 12:45] VITALS: BP 135/77; PULSE 82; RESP 17; O2SAT 98
[2024-09-25] MEDS ORDERED: OSEL75CA45 PO (13:15)
== END 2024-09-25 13:21 | disposition home or self-care (01) ==
LOC: EMS 11:06
DX: J10.1 Influenza due to other identified influenza virus with other respiratory manifestations (principal); I10 Essential (primary) hypertension; K76.0 Fatty (change of) liver, not elsewhere classified; Z90.49 Acquired absence of other specified parts of digestive tract; Z79.899 Other long term (current) drug therapy; Z20.822 Contact with and (suspected) exposure to COVID-19
CPT/HCPCS: 71045; 87804; 99284

== ENCOUNTER 2024-11-06 09:50 | Emergency (ER) | payer OTHER ==
[~2024-11-06] VITALS: Ht 170.2 cm; Wt 100.0 kg
[~2024-11-06 09:50] MED LIST changes: -ACET-66 PO; -BENZ-227 PO; -CEPH-558 PO; +CHOL200059 PO; -GUAIFDM PO; -IBUP-1492 PO; -IBUP-1554 PO; +MEDR10TA11 PO; -ORAL CONTRACEPTIVE PO; +OSEL75CA45 PO
[2024-11-06 10:01] VITALS: BP 137/85; PULSE 76; RESP 18; TEMP 97.7; O2SAT 99
[2024-11-06 10:08] LABS: APPEARANCE,URINE HAZY (CLEAR); BILIRUBIN,URINE NEGATIVE (NEGATIVE); COLOR,URINE LIGHT YELLOW (YELLOW); GLUCOSE, URINE (UA) NEGATIVE (NEGATIVE); KETONES,URINE NEGATIVE (NEGATIVE); LEUKOCYTE ESTERASE ,URINE LARGE (NEGATIVE); NITRATE,URINE NEGATIVE (NEGATIVE); OCCULT BLOOD,URINE NEGATIVE (NEGATIVE); PROTEIN,URINE NEGATIVE (NEGATIVE); UROBILINOGEN,URINE <=1.0 mg/dL (<=1.0)
[2024-11-06 10:13] LABS: BACTERIA,URINE Moderate /HPF (None Seen); RBC,URINE 0-2 /HPF (0-2); SQUAMOUS EPITHELIAL CELL,UR Moderate /LPF (None Seen)
[2024-11-06] MEDS: CEPHALEXIN MONOHYDRATE 500 MG CAPSULE PO ONE (10:51)
[2024-11-06] MEDS: AZITHROMYCIN 500 MG TABLET PO ONE (10:55)
[2024-11-06] MEDS: CefTRIAXone SODIUM 1 GM/VIAL IM ONE (10:56)
[2024-11-06] MEDS: LIDOCAINE/PF 1% 2 ML VIAL IM ONE (11:16)
[2024-11-06] MEDS ORDERED: CEPH-558 PO (11:28)
[2024-11-06] MEDS ORDERED: FLUC150T61 PO (11:28)
== END 2024-11-06 12:01 | disposition home or self-care (01) ==
LOC: EMS 09:50
DX: N34.2 Other urethritis (principal); K76.0 Fatty (change of) liver, not elsewhere classified; I10 Essential (primary) hypertension; Z90.49 Acquired absence of other specified parts of digestive tract; Z98.51 Tubal ligation status; Z79.899 Other long term (current) drug therapy
CPT/HCPCS: 99291; 81001; 87086; 96372; J0456; J0696; J3490

== ENCOUNTER 2025-04-11 15:11 | Inpatient (IN) | payer OTHER ==
[~2025-04-11] VITALS: Ht 154.9 cm; Wt 135.0 kg
[~2025-04-11 15:11] MED LIST changes: +CEPH-558 PO; +FLUC150T61 PO
[2025-04-11 16:26] LABS: PLATELET COUNT (AUTO) 483 K/uL (150-450); RED BLOOD CELL COUNT(AUTO) 4.40 MIL/uL (4.00-5.20); RED CELL DISTRIBUTION WIDTH 24.1 % (11.5-14.5); WHITE BLOOD COUNT (AUTO) 15.6 K/uL (4.5-11.0)
[2025-04-11 16:29] LABS: COVID AG,FIA SOURCE NASAL SWAB
[2025-04-11 16:32] LABS: APPEARANCE,URINE CLEAR (CLEAR); GLUCOSE, URINE (UA) NEGATIVE (NEGATIVE); LEUKOCYTE ESTERASE ,URINE NEGATIVE (NEGATIVE); NITRATE,URINE NEGATIVE (NEGATIVE); OCCULT BLOOD,URINE NEGATIVE (NEGATIVE); SPECIFIC GRAVITIY, URINE 1.021 (1.003-1.030)
[2025-04-11 16:40] LABS: ASPARTATE AMINOTRANSFERASE 139.0 U/L (15-37); CREATINE KINASE, TOTAL ONLY 115.0 U/L (26-192); TOTAL PROTEIN, SERUM 7.7 g/dL (6.4-8.2)
[2025-04-11 17:11] LABS: CALCIUM, TOTAL 8.6 mg/dL (8.8-10.5); CREATININE 0.45 mg/dL (0.60-1.30); GLOMERULAR FILTR. RATE CALC > 60 mL/min (>60); GLUCOSE,RANDOM 111 mg/dL (70-110); SODIUM SERUM 138 mmol/L (136-145); UREA NITROGEN, BLOOD 7 mg/dL (7-18)
[2025-04-11 17:25] LABS: RBC MORPHOLOGY COMMENT ABNORMAL RBC MORPH
[2025-04-11] MEDS ORDERED: MEDR5TAB5 PO (17:26)
[2025-04-11 17:29] LABS: TROPONIN I-HIGH SENSITIVITY 7 ng/L (<51)
[2025-04-11 17:33] LABS: SARS-COV2 (COVID) ANTIGEN,FIA Negative (Negative)
[2025-04-11 17:35] LABS: INFLUENZA TYPE A NEGATIVE FOR TYPE A (NEGATIVE); INFLUENZA TYPE B NEGATIVE FOR TYPE B (NEGATIVE)
[2025-04-11] MEDS ORDERED: OxyCODONE HCL/ACETAMINOPHEN 5-325 MG TABLET PO PRN (19:00)
[2025-04-11] MEDS ORDERED: ACETAMINOPHEN 325 MG TABLET PO PRN (19:00)
[2025-04-11] MEDS ORDERED: ZOLPIDEM TARTRATE 5 MG TABLET PO PRN (19:00)
[2025-04-11] MEDS ORDERED: MAGNESIUM HYDROXIDE SUSPENSION 30 ML UDCUP PO PRN (19:00)
[2025-04-11] MEDS ORDERED: ALBUTEROL SULFATE 2.5 MG/0.5 ML NEB SOLUTION NEB PRN (19:00)
[2025-04-11] MEDS ORDERED: POTASSIUM CHL 10 MEQ/WATER 50 ML IV PRN (19:00)
[2025-04-11] MEDS: ASPIRIN 81 MG CHEWABLE TABLET PO SCH (19:45)
[2025-04-11] MEDS: CefTRIAXone 1 GM/DEXTROSE 50 ML IV SCH (19:45)
[2025-04-11] MEDS: AZITHROMYCIN 500 MG/NS 250 ML IV SCH (19:45)
[2025-04-11] MEDS: DOCUSATE SODIUM 100 MG CAPSULE PO SCH (19:46)
[2025-04-11] MEDS: POTASSIUM CHLORIDE 20 MEQ ER TABLET PO PRN (19:46)
[2025-04-11 21:47] LABS: PH,URINE DRUG SCREEN 5.5 (5.0-8.0)
[2025-04-11 21:52] LABS: TROPONIN I-HIGH SENSITIVITY 6 ng/L (<51)
[2025-04-11 21:53] LABS: ALCOHOL, URINE DRUG SCREEN NEGATIVE (NEGATIVE); AMPHET/METH SCREEN,URINE NEGATIVE (NEGATIVE); BARBITURATE SCREEN, URINE NEGATIVE (NEGATIVE); CANNABINOID SCREEN,URINE NEGATIVE (NEGATIVE); COCAINE SCREEN,URINE NEGATIVE (NEGATIVE); METHADONE SCREEN, URINE NEGATIVE (NEGATIVE)
[2025-04-11 22:13] VITALS: BP 128/87; PULSE 91; RESP 20; TEMP 98.4; O2SAT 97
[2025-04-12] MEDS: HEPARIN SODIUM,PORCINE 5,000 UNITS/ML VIAL SQ SCH (00:37)
[2025-04-12 04:49] VITALS: BP 134/91; PULSE 80; RESP 18; TEMP 98.8; O2SAT 96
[2025-04-12 07:47] VITALS: BP 154/83; PULSE 78; RESP 18; TEMP 98.2; O2SAT 99
[2025-04-12] MEDS: FAMOTIDINE 20 MG TABLET PO SCH (08:20)
[2025-04-12 10:19] VITALS: BP 132/80
[2025-04-12 11:55] VITALS: BP 142/86; PULSE 73; RESP 18; TEMP 98.8; O2SAT 100
[2025-04-12] MEDS: LOSARTAN POTASSIUM 50 MG TABLET PO SCH (12:51)
[2025-04-12 14:01] LABS: PLATELET COUNT (AUTO) 537 K/uL (150-450); RED BLOOD CELL COUNT(AUTO) 4.96 MIL/uL (4.00-5.20); RED CELL DISTRIBUTION WIDTH 24.2 % (11.5-14.5); WHITE BLOOD COUNT (AUTO) 8.7 K/uL (4.5-11.0)
[2025-04-12 14:09] LABS: CALCIUM, TOTAL 9.4 mg/dL (8.8-10.5); CREATININE 0.50 mg/dL (0.60-1.30); GLOMERULAR FILTR. RATE CALC > 60 mL/min (>60); GLUCOSE,RANDOM 99 mg/dL (70-110); SODIUM SERUM 139 mmol/L (136-145); UREA NITROGEN, BLOOD 6 mg/dL (7-18)
[2025-04-12 14:29] LABS: RBC MORPHOLOGY COMMENT ABNORMAL RBC MORPH
[2025-04-12 15:32] VITALS: BP 138/84; PULSE 73; RESP 17; TEMP 98.5; O2SAT 99
[2025-04-12] MEDS ORDERED: SODIUM CHLORIDE 0.9% 250 ML IV ONE (20:08)
[2025-04-12 23:49] VITALS: BP 150/82; PULSE 76; RESP 17; TEMP 98.6; O2SAT 98
[2025-04-13 03:48] VITALS: BP 121/74; PULSE 79; RESP 18; TEMP 98.1; O2SAT 99
[2025-04-13 08:34] VITALS: BP 115/86; PULSE 75; RESP 18; TEMP 98.4; O2SAT 100
[2025-04-13] MEDS ORDERED: LOSA-382 PO (10:19)
[2025-04-13] MEDS ORDERED: LEVO-72 PO (10:19)
== END 2025-04-13 11:30 | disposition home or self-care (01) | DRG 139 ==
LOC: EMS 15:11 → EDH 18:54 → 5N 20:37
PROVIDERS: ADMIT Internal Medicine; ATTEND Internal Medicine
DX: J18.9 Pneumonia, unspecified organism (principal); Z68.43 Body mass index [BMI] 50.0-59.9, adult; E66.01 Morbid (severe) obesity due to excess calories; E87.6 Hypokalemia; Z20.822 Contact with and (suspected) exposure to COVID-19; D72.829 Elevated white blood cell count, unspecified; I10 Essential (primary) hypertension; G47.33 Obstructive sleep apnea (adult) (pediatric); K76.0 Fatty (change of) liver, not elsewhere classified; Z90.710 Acquired absence of both cervix and uterus; Z79.899 Other long term (current) drug therapy
CPT/HCPCS: 71045; 80048; 80076; 80307; 81003; 82550; 83880; 84132; 84484; 84703; 85025; 87804; 93005; 99285; J0456; J0696; J1644; J7050; 36415-L1; 36415-TC

== ENCOUNTER 2025-05-29 11:29 | Emergency (ER) | payer OTHER ==
[~2025-05-29] VITALS: Ht 154.9 cm; Wt 133.2 kg
[~2025-05-29 11:29] MED LIST changes: -CEPH-558 PO; -CHOL200059 PO; -FLUC150T61 PO; +LEVO-72 PO; +LOSA-382 PO; -LOSA100T59 PO; -MEDR10TA11 PO; -OSEL75CA45 PO
[2025-05-29 11:31] VITALS: BP 124/97; PULSE 83; RESP 16; TEMP 99; O2SAT 96
[2025-05-29 11:52] LABS: APPEARANCE,URINE CLEAR (CLEAR); GLUCOSE, URINE (UA) NEGATIVE (NEGATIVE); LEUKOCYTE ESTERASE ,URINE MODERATE (NEGATIVE); NITRATE,URINE NEGATIVE (NEGATIVE); OCCULT BLOOD,URINE NEGATIVE (NEGATIVE); SPECIFIC GRAVITIY, URINE 1.020 (1.003-1.030)
[2025-05-29 12:02] LABS: SQUAMOUS EPITHELIAL CELL,UR Few /LPF (None Seen)
[2025-05-29] MEDS ORDERED: CEPH-558 PO (12:28)
== END 2025-05-29 13:00 | disposition home or self-care (01) ==
LOC: EMS 11:29
DX: R82.81 Pyuria (principal); I10 Essential (primary) hypertension; Z90.710 Acquired absence of both cervix and uterus; Z79.899 Other long term (current) drug therapy
CPT/HCPCS: 81001; 99283

== ENCOUNTER 2025-06-17 07:21 | Emergency (ER) | payer OTHER ==
[~2025-06-17] VITALS: Ht 154.9 cm; Wt 134.1 kg
[~2025-06-17 07:21] MED LIST changes: +CEPH-558 PO
[2025-06-17 07:32] VITALS: TEMP 98.4
[2025-06-17 08:08] LABS: APPEARANCE,URINE HAZY (CLEAR); GLUCOSE, URINE (UA) NEGATIVE (NEGATIVE); LEUKOCYTE ESTERASE ,URINE LARGE (NEGATIVE); NITRATE,URINE NEGATIVE (NEGATIVE); OCCULT BLOOD,URINE TRACE (NEGATIVE); SPECIFIC GRAVITIY, URINE 1.022 (1.003-1.030)
[2025-06-17 08:54] LABS: SQUAMOUS EPITHELIAL CELL,UR Many /LPF (None Seen)
[2025-06-17 09:02] LABS: URINALYSIS COMMENT Few Trichomonas seen
[2025-06-17 10:42] VITALS: BP 156/96; PULSE 64; RESP 18; O2SAT 100
[2025-06-17] MEDS ORDERED: METR500 PO (10:54)
== END 2025-06-17 10:58 | disposition home or self-care (01) ==
LOC: EMS 07:21
DX: A59.03 Trichomonal cystitis and urethritis (principal); L29.9 Pruritus, unspecified; I10 Essential (primary) hypertension; K76.0 Fatty (change of) liver, not elsewhere classified; Z90.710 Acquired absence of both cervix and uterus; Z79.899 Other long term (current) drug therapy
CPT/HCPCS: 81001; 87086; 87491; 87591; 99283